=== PATIENT | female | born 1980 | race Hispanic/Latino ===

== ENCOUNTER 2023-11-09 11:42 | Emergency (ER) | payer BC ==
[~2023-11-09] VITALS: Ht 160 cm; Wt 72.6 kg
[2023-11-09 11:44] VITALS: BP 112/76; PULSE 74; RESP 18
[2023-11-09] MEDS: CEPHALEXIN 500 MG CAPSULE PO ONE (12:04)
[2023-11-09] MEDS: ACETAMINOPHEN 500 MG TABLET PO ONE (12:05)
[2023-11-09] MEDS: TETANUS/DIPHTHERIA TOXOID [ADULT] 0.5 ML VIAL IM ONE (12:07)
[2023-11-09] MEDS ORDERED: IBUP-2077 PO (12:50)
[2023-11-09] MEDS ORDERED: CEPH500B PO (12:50)
== END 2023-11-09 12:56 | disposition home or self-care (01) ==
LOC: EDH 11:42
DX: S91.331A Puncture wound without foreign body, right foot, initial encounter (principal); W22.8XXA Striking against or struck by other objects, initial encounter; Y93.89 Activity, other specified; Y92.89 Other specified places as the place of occurrence of the external cause; Y99.8 Other external cause status
CPT/HCPCS: 73630; 90471; 90714